=== PATIENT | male | born 1945 | race Caucasian/White ===

== ENCOUNTER → 2018-05-30 07:25 | Outpatient (CLI) | payer MEDICARE, OTHER, SELFPAY ==
[2018-05-30 08:41] LABS: Add Manual Diff / Slide Review NO; Basophils Percent Auto 0.8 % (0-2); Eosinophils Percent Auto 2.2 % (2-4); Hematocrit 39.1 % (41-53); Hemoglobin 13.6 g/dL (13.5-17.5); Lymphocytes Percent Auto 26.8 % (25-40); Mean Corpuscular HGB Conc 34.8 % (30-36); Mean Corpuscular Hemoglobin 34.1 PG (26-34); Monocytes Percent Auto 6.7 % (3-14); Neutrophils Absolute Auto 3300 /uL (3000-5900); Neutrophils Percent Auto 63.5 % (50-75); Platelet Count 194 X10^3/uL (150-400); Red Blood Cell Count 3.99 X10^6/uL (4.5-5.9); Red Cell Distribution Width 13.6 % (11.6-14.8); White Blood Cell Count 5.1 X10^3/uL (4.5-11.0)
[2018-05-30 09:14] LABS: Alanine Aminotransferase 21 IU/L (21-72); Albumin 4.4 g/dL (3.5-5.0); Albumin Globulin Ratio 1.3 (1.0-2.8); Alkaline Phosphatase 63 U/L (38-126); Aspartate Aminotransferase 22 IU/L (17-59); BUN Creatinine Ratio 13.6 (6-22); Bilirubin Total 0.6 mg/dL (0.2-1.3); Blood Urea Nitrogen 15 mg/dL (9-20); Calcium 9.5 mg/dL (8.4-10.2); Carbon Dioxide 29 mmol/L (22-32); Chloride 105 mmol/L (98-107); Estimated Glomerular Filt Rate > 60.0 mL/min (>60); Globulin 3.3 g/dL (1.7-4.1); Glucose 123 mg/dL (80-110); HEMOLYSIS < 15 (0-50); Magnesium 1.9 mg/dL (1.6-2.3); Potassium 4.6 mmol/L (3.4-5.1); Sodium 145 mmol/L (137-145); Total Protein 7.7 g/dL (6.3-8.2)
[2018-05-30 09:22] LABS: HEMOLYSIS < 15 (0-50); Iron 114 ug/dL (49-181)
[2018-05-30 09:33] LABS: Percent Iron Saturation 51 % (20-50); Total Iron Binding Capacity 225 ug/dL (261-462); Transferrin 175 mg/dL (206-381)
[2018-05-30 09:38] LABS: Vitamin D 25 Hydroxy (D3) 26.6 ng/mL (30.0-100.0)
[2018-05-30 09:59] LABS: Vitamin B12 376 pg/mL (239-931)
[2018-06-01 15:07] LABS: Parathyroid Hormone Int 79 pg/mL (14-64)
[2018-06-01 15:14] LABS: Folate, RBC 921 ng/mL RBC (> 280)
[2018-06-03 11:50] LABS: Vitamin B1 199 nmol/L (78-185)
== END ==
PROVIDERS: PCP Family Medicine; Visit Provider Nurse Practitioner Family
DX: Z98.84 Bariatric surgery status (principal); K91.2 Postsurgical malabsorption, not elsewhere classified; I10 Essential (primary) hypertension; E78.00 Pure hypercholesterolemia, unspecified; M10.9 Gout, unspecified; N18.2 Chronic kidney disease, stage 2 (mild)
CPT/HCPCS: 36415; 80053; 82306; 82330; 82607; 82728; 82747; 83540; 83550; 83735; 83970; 84425; 85025

== ENCOUNTER → 2018-08-07 11:30 | Outpatient (CLI) | payer MEDICARE, OTHER, SELFPAY ==
[2018-08-07 12:09] LABS: Add Manual Diff / Slide Review NO; Basophils Percent Auto 0.8 % (0-2); Eosinophils Percent Auto 2.3 % (2-4); Hemoglobin 14.5 g/dL (13.5-17.5); Lymphocytes Percent Auto 26.9 % (25-40); Mean Corpuscular HGB Conc 34.5 % (30-36); Mean Corpuscular Hemoglobin 33.9 PG (26-34); Mean Corpuscular Volume 98.4 fL (80-100); Monocytes Percent Auto 8.3 % (3-14); Neutrophils Absolute Auto 3700 /uL (3000-5900); Neutrophils Percent Auto 61.7 % (50-75); Platelet Count 185 X10^3/uL (150-400); Red Blood Cell Count 4.27 X10^6/uL (4.5-5.9); Red Cell Distribution Width 13.5 % (11.6-14.8); White Blood Cell Count 6.1 X10^3/uL (4.5-11.0)
[2018-08-07 12:27] LABS: Alanine Aminotransferase 21 IU/L (21-72); Albumin 4.7 g/dL (3.5-5.0); Albumin Globulin Ratio 1.3 (1.0-2.8); Alkaline Phosphatase 63 U/L (38-126); Aspartate Aminotransferase 28 IU/L (17-59); BUN Creatinine Ratio 16.4 (6-22); Bilirubin Total 0.5 mg/dL (0.2-1.3); Blood Urea Nitrogen 18 mg/dL (9-20); Calcium 9.8 mg/dL (8.4-10.2); Carbon Dioxide 27 mmol/L (22-32); Chloride 105 mmol/L (98-107); Cholesterol 230 mg/dL (140-199); Creatine Kinase 51 U/L (55-170); Estimated Glomerular Filt Rate > 60.0 mL/min (>60); Globulin 3.6 g/dL (1.7-4.1); Glucose 118 mg/dL (80-110); HDL Cholesterol 45 mg/dL (40-60); HEMOLYSIS 18 (0-50); LDL Cholesterol Calculated 141 mg/dL (<100); Potassium 4.7 mmol/L (3.4-5.1); Sodium 145 mmol/L (137-145); Total Protein 8.3 g/dL (6.3-8.2); Triglycerides 222 mg/dL (35-150)
[2018-08-07 12:46] LABS: Troponin I < 0.012 ng/mL (0.01-0.034)
== END ==
PROVIDERS: PCP Family Medicine; Visit Provider Nurse Practitioner Family
DX: R07.9 Chest pain, unspecified (principal)
CPT/HCPCS: 36415; 80053; 80061; 82550; 82553; 84484; 85025

== ENCOUNTER → 2018-09-09 08:07 | Outpatient (CLI) | payer MEDICARE, OTHER, SELFPAY ==
[2018-09-09 10:12] LABS: Cholesterol 211 mg/dL (140-199); HDL Cholesterol 46 mg/dL (40-60); LDL Cholesterol Calculated 134 mg/dL (<100); Triglycerides 153 mg/dL (35-150)
== END ==
PROVIDERS: Family Provider Family Medicine; PCP Family Medicine; Visit Provider Internal Medicine Cardiovascular Disease
DX: E78.2 Mixed hyperlipidemia (principal)
CPT/HCPCS: 36415; 80061

== ENCOUNTER → 2018-09-23 10:28 | Outpatient (CLI) | payer MEDICARE, OTHER, SELFPAY ==
--- NOTE | 2018-09-23 10:30 | DI.RAD.S_ITS ---
PROCEDURE: XR WRIST RT MIN 3V INDICATIONS: Wrist pain TECHNIQUE: 4 views of the wrist were acquired. COMPARISON: None. FINDINGS: Bones: No fractures or dislocations. First CMC and triscaphe joint degeneration. There is also DRUJ degeneration. Chronic appearing ossicle projects adjacent to the ulnar styloid. Lucencies project in the second and third metacarpal heads. There also periarticular calcification seen at the second and third MCP joints. No suspicious bony lesions. Soft tissues: No suspicious soft tissue calcifications. IMPRESSION: Diffuse right wrist joint degeneration, including the distal radioulnar joint. Chronic-appearing corticated ossicle adjacent ulnar styloid suggestive of chronic fracture fragment versus loose body. Severe first CMC joint degeneration. Second and third MCP joint degeneration with periarticular calcific foci. Possible early erosions involving the second and third metacarpal heads. Please correlate clinically and with laboratory data to exclude gout. Dictated by: Ramsey Cabezas M.D. on 09/23/2018 at 13:21 Approved by: Ramsey Cabezas M.D. on 09/23/2018 at 13:24
== END ==
PROVIDERS: Family Provider Family Medicine; PCP Student in an Organized Health Care Education/Training Program; Visit Provider Student in an Organized Health Care Education/Training Program
DX: M25.531 Pain in right wrist (principal); M18.11 Unilateral primary osteoarthritis of first carpometacarpal joint, right hand; M19.041 Primary osteoarthritis, right hand; M19.031 Primary osteoarthritis, right wrist
CPT/HCPCS: 73110

== ENCOUNTER → 2018-10-29 15:34 | Outpatient (CLI) | payer MEDICARE, OTHER, SELFPAY ==
--- NOTE | 2018-10-29 15:35 | DI.RAD.S_ITS ---
PROCEDURE: XR CHEST 2V INDICATIONS: Chest pain TECHNIQUE: 2 views of the chest were acquired. COMPARISON: [facility], , CHEST 1 VIEW, 10/30/2017, 14:44. FINDINGS: Surgical changes and devices: None. Lungs and pleura: No pleural effusions or pneumothorax. Lungs are clear. Mediastinum: Mediastinal contours are normal. Heart size is normal. Bones and chest wall: No suspicious bony abnormalities. Soft tissues appear unremarkable. IMPRESSION: No acute pulmonary process. Dictated by: Trish Augustine M.D. on 10/29/2018 at 17:27 Approved by: Trish Augustine M.D. on 10/29/2018 at 17:27
== END ==
PROVIDERS: PCP Student in an Organized Health Care Education/Training Program; Visit Provider Student in an Organized Health Care Education/Training Program
DX: R07.89 Other chest pain (principal)
CPT/HCPCS: 71046

== ENCOUNTER → 2019-02-24 07:37 | Outpatient (CLI) | payer MEDICARE, OTHER, SELFPAY ==
[2019-02-24 09:00] LABS: BUN Creatinine Ratio 12.5 (6-22); Blood Urea Nitrogen 15 mg/dL (9-20); Calcium 9.3 mg/dL (8.4-10.2); Carbon Dioxide 25 mmol/L (22-32); Chloride 105 mmol/L (98-107); Cholesterol 133 mg/dL (140-199); Glucose 123 mg/dL (80-110); HDL Cholesterol 40 mg/dL (40-60); HEMOLYSIS < 15 (0-50); LDL Cholesterol Calculated 36 mg/dL (<100); Potassium 4.2 mmol/L (3.4-5.1); Sodium 141 mmol/L (137-145); Triglycerides 283 mg/dL (35-150); Uric Acid 8.2 mg/dL (3.5-8.5)
[2019-02-24 09:27] LABS: Vitamin D 25 Hydroxy (D3) 29.3 ng/mL (30.0-100.0)
== END ==
PROVIDERS: Family Provider Student in an Organized Health Care Education/Training Program; PCP Student in an Organized Health Care Education/Training Program; Visit Provider Internal Medicine Cardiovascular Disease
DX: E78.2 Mixed hyperlipidemia (principal); E55.9 Vitamin D deficiency, unspecified; M1A.39X1 Chronic gout due to renal impairment, multiple sites, with tophus (tophi)
CPT/HCPCS: 36415; 80048; 80061; 82306; 84550

== ENCOUNTER → 2019-05-19 07:14 | Outpatient (CLI) | payer MEDICARE, OTHER, SELFPAY ==
[2019-05-19 08:31] LABS: Add Manual Diff / Slide Review NO; Basophils Absolute Auto 0 /uL (0-100); Basophils Percent Auto 0.9 % (0-2); Eosinophils Absolute Auto 200 /uL (0-450); Eosinophils Percent Auto 3.1 % (2-4); Hemoglobin 14.3 g/dL (13.5-17.5); Lymphocytes Absolute Auto 1300 /uL (1100-4500); Lymphocytes Percent Auto 23.7 % (25-40); Mean Corpuscular HGB Conc 34.2 % (30-36); Mean Corpuscular Hemoglobin 34.6 PG (26-34); Mean Corpuscular Volume 101.2 fL (80-100); Monocytes Absolute Auto 400 /uL (0-900); Monocytes Percent Auto 6.9 % (3-14); Neutrophils Absolute Auto 3500 /uL (1500-7000); Neutrophils Percent Auto 65.4 % (50-75); Platelet Count 185 X10^3/uL (150-400); Red Blood Cell Count 4.15 X10^6/uL (4.5-5.9); Red Cell Distribution Width 13.2 % (11.6-14.8); White Blood Cell Count 5.3 X10^3/uL (4.5-11.0)
[2019-05-19 08:49] LABS: Hemoglobin A1C% w Est Avg Glu 5.7 % (4.0-6.0)
[2019-05-19 08:53] LABS: Alanine Aminotransferase 19 IU/L (21-72); Albumin 4.4 g/dL (3.5-5.0); Albumin Globulin Ratio 1.3 (1.0-2.8); Alkaline Phosphatase 53 U/L (38-126); Aspartate Aminotransferase 26 IU/L (17-59); Bilirubin Total 0.9 mg/dL (0.2-1.3); Blood Urea Nitrogen 18 mg/dL (9-20); Calcium 9.5 mg/dL (8.4-10.2); Carbon Dioxide 26 mmol/L (22-32); Chloride 107 mmol/L (98-107); Globulin 3.3 g/dL (1.7-4.1); Glucose 144 mg/dL (80-110); HEMOLYSIS < 15 (0-50); Magnesium 1.6 mg/dL (1.6-2.3); Potassium 4.3 mmol/L (3.4-5.1); Sodium 144 mmol/L (137-145); Total Protein 7.7 g/dL (6.3-8.2)
[2019-05-19 09:07] LABS: HEMOLYSIS < 15 (0-50); Iron 146 ug/dL (49-181)
[2019-05-19 09:17] LABS: Percent Iron Saturation 60 % (20-50); Total Iron Binding Capacity 244 ug/dL (261-462); Transferrin 200 mg/dL (206-381)
[2019-05-19 09:39] LABS: Vitamin B12 328 pg/mL (239-931)
[2019-05-20 15:38] LABS: Folate, RBC 561 ng/mL RBC (> 280)
[2019-05-23 00:58] LABS: Vitamin B1 160 nmol/L (78-185)
== END ==
PROVIDERS: Family Provider Student in an Organized Health Care Education/Training Program; PCP Student in an Organized Health Care Education/Training Program; Visit Provider Nurse Practitioner Family
DX: Z98.84 Bariatric surgery status (principal); K91.2 Postsurgical malabsorption, not elsewhere classified; E66.9 Obesity, unspecified; E66.3 Overweight; N18.2 Chronic kidney disease, stage 2 (mild)
CPT/HCPCS: 36415; 80053; 82330; 82607; 82728; 82747; 83036; 83540; 83550; 83735; 84425; 85025

== ENCOUNTER 2019-09-22 11:05 | Emergency (ER) | payer MEDICARE, OTHER, SELFPAY ==
[2019-09-22 11:23] VITALS: BP 164/84; PULSE 64; RESP 16; TEMP 36.6; O2SAT 100; BMI 33.2
[2019-09-22 12:10] VITALS: BP 189/114; BP 192/90; BP 194/80
--- NOTE | 2019-09-22 12:16 | DI.RAD.S_ITS ---
PROCEDURE: XR CHEST 1V INDICATIONS: chest pain TECHNIQUE: One view of the chest was acquired. COMPARISON: [facility], CR, XR CHEST 2V, 10/29/2018, 15:44. FINDINGS: Surgical changes and devices: None. Lungs and pleura: Lungs are clear. No pleural effusions or pneumothorax. Mediastinum: Mediastinal contours appear normal. Heart size is normal. Bones and chest wall: No suspicious bony lesions. Overlying soft tissues appear unremarkable. IMPRESSION: No acute cardiopulmonary disease. Dictated by: Jas Guillen M.D. on 09/22/2019 at 13:01 Approved by: Jas Guillen M.D. on 09/22/2019 at 13:01
[2019-09-22 12:23] LABS: Add Manual Diff / Slide Review NO; Basophils Absolute Auto 100 /uL (0-100); Eosinophils Absolute Auto 100 /uL (0-450); Hemoglobin 13.6 g/dL (13.5-17.5); Lymphocytes Absolute Auto 2100 /uL (1100-4500); Mean Corpuscular HGB Conc 34.9 % (30-36); Mean Corpuscular Hemoglobin 34.5 PG (26-34); Mean Corpuscular Volume 99.1 fL (80-100); Monocytes Absolute Auto 600 /uL (0-900); Monocytes Percent Auto 8.7 % (3-14); Neutrophils Absolute Auto 4100 /uL (1500-7000); Neutrophils Percent Auto 58.3 % (50-75); Platelet Count 180 X10^3/uL (150-400); Red Blood Cell Count 3.94 X10^6/uL (4.5-5.9); Red Cell Distribution Width 13.2 % (11.6-14.8)
[2019-09-22 12:29] LABS: Prothrombin Time 11.2 SECONDS (10.1-12.7)
[2019-09-22 12:30] VITALS: BP 194/80; PULSE 59; RESP 22; O2SAT 99
[2019-09-22 12:31] LABS: PTT Partial Thromboplastin Tim 34 SECONDS (26.4-36.2)
[2019-09-22 12:34] LABS: Alanine Aminotransferase 21 IU/L (<50); Albumin 4.3 g/dL (3.5-5.0); Albumin Globulin Ratio 1.5 (1.0-2.8); Alkaline Phosphatase 58 U/L (38-126); Aspartate Aminotransferase 30 IU/L (17-59); BUN Creatinine Ratio 12.3 (6-22); Bilirubin Total 0.6 mg/dL (0.2-1.3); Blood Urea Nitrogen 16 mg/dL (9-20); Calcium 9.3 mg/dL (8.4-10.2); Carbon Dioxide 26 mmol/L (22-32); Chloride 107 mmol/L (98-107); Creatine Kinase 77 U/L (55-170); Estimated Glomerular Filt Rate 53.8 mL/min (>60); Globulin 2.8 g/dL (1.7-4.1); Glucose 112 mg/dL (80-110); HEMOLYSIS < 15 (0-50); Potassium 3.9 mmol/L (3.4-5.1); Sodium 142 mmol/L (137-145); Total Protein 7.1 g/dL (6.3-8.2)
[2019-09-22 12:48] LABS: Troponin I < 0.012 ng/mL (0.01-0.034)
--- NOTE | 2019-09-22 13:01 | ED_ITS ---
HPI - Syncope General Chief Complaint: Syncope Stated Complaint: abnormal EKG PT has a reading in hand Time Seen by Provider: 09/22/19 11:36 Source: patient Mode of arrival: Ambulatory Limitations: language barrier History of Present Illness HPI narrative: Patient comes emergency department after having a syncopal e pisode approximately 36 hours ago. He states that he had gotten up in the middle of the night to go to the bathroom and he suddenly felt some tingling in his fingers, then woke up on the floor. Patient states his was there and stated he had passed out. Patient states he was only unconscious for a few seconds and felt fine afterward. He states he did not feel any ill feeling prior to the syncopal episode, other than the tingling in his fingers. No chest pain or shortness breath. No nausea vomiting. No headache. No focal neurologic deficits. Patient states that he is otherwise fairly healthy. He does not have any history of syncopal episode prior. Patient states that yesterday, he felt well and did not have any further syncope or near syncope. Last night he got up to go to the bathroom and did not have any trouble with getting up and walking.. Related Data Home Medications Medication Instructions Recorded Confirmed vitamin B complex [B 1 tab PO QDAY #0 08/22/16 09/23/19 Complex-Vitamin B12] [CALCIUM] 150 mg PO SEE INSTRUCTIONS #0 11/01/17 09/23/19 [IRON] 65 mg PO SEE INSTRUCTIONS #0 11/01/17 09/23/19 magnesium oxide 400 mg PO QDAY #0 11/01/17 09/23/19 omega-3 fatty acids 1,000 mg 1,000 mg PO BID cap 08/07/18 09/23/19 capsule omeprazole 40 mg capsule,delayed 20 mg PO Q DAY cap 08/07/18 09/23/19 release atorvastatin 20 mg tablet 20 mg PO DAILY 09/23/18 09/23/19 Previous Rx's Medication Instructions Recorded colchicine 0.6 mg tablet 0.6 mg PO TIDP PRN #180 tab 09/23/18 probenecid 500 mg tablet 1,000 mg PO BID #360 tab 09/23/19 Allergies Allergy/AdvReac Type Severity Reaction Status Date / Time codeine Allergy Mild RASH Verified 09/23/19 14:11 probenecid AdvReac Intermediate Back Pain Verified 09/23/19 14:11 Review of Systems Constitutional Constitutional: Denies chills, Denies fatigue, Denies fever(s), Denies frequent falls, Denies lethargy and Denies weakness Eyes Eyes: Denies change in vision, Denies eye discharge, Denies irritation and Denies loss of vision ENT Ears, Nose, Mouth, and Throat: Denies change in voice, Denies dizziness, Denies neck pain, Denies sore throat and Denies throat swelling Cardiovascular Cardiovascular: Denies chest pain, Reports syncope, Denies irregular heart rhythm, Denies lightheadedness, Denies palpitations, Denies dyspnea, Denies dyspnea on exertion and Denies orthopnea Respiratory Respiratory: Denies cough, Denies dyspnea, Denies dyspnea on exertion and Denies wheezing Gastrointestinal Gastrointestinal: Denies abdominal pain, Denies change in bowel habits, Denies diarrhea, Denies nausea and Denies vomiting Genitourinary Genitourinary: Denies hematuria, Denies flank pain, Denies urinary incontinence and Denies urinary urgency Musculoskeletal Musculoskeletal: Denies back pain, Denies muscle weakness, Denies neck pain, Denies numbness and Denies tingling Integumentary/Breasts Skin/Breast: Denies pruritus, Denies erythema, Denies rash and Denies wounds Neurologic Neurologic: Denies behavioral changes, Denies confusion, Denies dizziness, Reports syncope, Denies frequent falls, Denies loss of vision, Denies numbness, Denies tingling and Denies weakness Psychiatric Psychiatric: Denies anxiety, Denies behavioral changes, Denies confusion, Denies depression, Denies homicidal ideation and Denies suicidal ideation Endocrine Endocrine: Denies fatigue, Denies flushing and Denies palpitations Hematologic/Lymphatic Hematologic/Lymphatic: Denies easy bruising Allergic/Immunologic Allergic/Immunologic: Denies urticaria, Denies throat swelling and Denies wheezing Patient History Medical History CAD (coronary artery disease) (Chronic) COPD (chronic obstructive pulmonary disease) (Chronic) Diabetes mellitus (Chronic) GERD (gastroesophageal reflux disease) (Chronic) Hyperlipidemia (Chronic) WI (myocardial infarction) (Resolved) Obesity (Chronic) Renal insufficiency (Chronic) Sleep apnea (Chronic) Surgical History History of cataract removal with insertion of prosthetic lens (Resolved 06/16/08) History of cataract removal with insertion of prosthetic lens (Resolved 07/14/08) History of gastric bypass (Resolved 07/06/14) Status post appendectomy (Resolved 02/10/15) Status post blepharoplasty of both eyes (Resolved 02/19/09) Status post endoscopy (Resolved 04/16/14) Status post laparoscopic cholecystectomy (Resolved 02/10/15) Status post left knee replacement (Resolved 04/10/05) Status post right knee replacement (Resolved 07/22/05) Family History Father No problems noted. Mother No problems noted. Sister Chronic back pain Sister No problems noted. Son Hyperlipidemia Alcoholic Son Hyperlipidemia Chronic headaches Daughter No problems noted. Social History Smoking Status: Former smoker alcohol intake frequency: holidays/special occasions only Alcohol type: beer Substance Use Type: does not use Exam Initial Vital Signs Initial Vital Signs: Vital Signs Temperature 97.9 F 09/22/19 11:23 Pulse Rate 64 09/22/19 11:23 Respiratory Rate 16 09/22/19 11:23 Blood Pressure 164/84 H 09/22/19 11:23 Pulse Oximetry 100 09/22/19 11:23 Const General: cooperative and well developed Nutritional Appearance: well nourished Orientation: alert, awake, oriented x3 and not confused [facility] Head: normocephalic and atraumatic Ears: external ears normal Nose: external nose normal and No nasal discharge Face and sinus: face symmetric and No dry mucous membranes Mouth: oral mucosae normal and moist mucous membranes Teeth and gingiva: dentition normal Eyes General: appearance normal, both eyes and all related structures Eyelids: eyelids normal Conjunctivae: conjunctivae normal Sclera: sclerae normal Pupils: PERRL EOM: EOM intact bilaterally Neck Neck: normal visual inspection, trachea midline, No lymphadenopathy, No midline deformity and No JVD Lymphatic: No lymphedema Chest Chest: normal inspection of the chest Resp Effort & Inspection: normal respiratory effort, able to speak in complete sentences, no respiratory distress and no use of accessory muscles Auscultation: clear to auscultation bilaterally, no rales, no rhonchi and no wheezes Cardio Rate: regular rate Rhythm: regular rhythm Heart Sounds: no click, no gallops, no murmurs and no rubs Pulses: normal peripheral pulses GI Inspection: non-distended Palpation: soft, no hepatosplenomegaly, No guarding, No pulsatile mass and No tender Auscultation: normal bowel sounds Back/Spine/Pelvis Back: No CVA tenderness Cervical Spine: cervical ROM normal and No pain with cervical ROM Thoracic/Lumbar Spine: thoracic and lumbar spine normal to inspection Skin General: no rashes or lesions noted, No jaundice and No petechiae Neuro General: alert, oriented x3, gait normal and no focal motor deficits Speech: speech normal Extrem General: full ROM, no clubbing, cyanosis or edema, no pedal edema and no calf tenderness Psych Appearance: well kempt Mental Status: mental status grossly normal Attitude: cooperative Thought Content: normal and suicidality Judgment: judgment good Course Course Course Narrative: Patient was worked up with labs and EKG, which were unremarkable. The patient was found to be bradycardic in the 50s, but the patient states that this is his normal heart rate. The patient was feeling very well, and I suspected postural syncope. We have discussed the importance of drinking plenty of fluids, and of follow-up, should he have further episodes of syncope. However, at this time, I do not find evidence of an emergent condition, and the patient is stable for discharge home. Orders Ordered: ED Orders 09/22/19 12:10 Complete Blood Count AUTO DIFF Stat Comprehensive Metabolic Panel Stat Partial Thromboplastin Time Stat Prothrombin Time INR Stat Troponin & CK Cardiac Panel Stat 09/22/19 12:16 XR chest 1V Stat EKG-12 Lead Stat Vital Signs Vital signs: Vital Signs - 8 hr 09/22/19 11:23 09/22/19 12:30 Temperature 97.9 F Pulse Rate 64 59 L Respiratory Rate 16 22 Blood Pressure 164/84 H Blood Pressure [Right Arm] 194/80 H Pulse Oximetry 100 99 MDM - Syncope Medical Records Attestation: I reviewed the patient's medical records. Lab Data Attestation: I reviewed the patient's lab results. Result diagrams: 09/22/19 12:10 09/22/19 12:10 Labs: Lab Results 11/04/19 11/04/19 11/04/19 Range/Units 12:10 12:10 12:10 WBC 7.0 (4.5-11.0) X10^3/uL RBC 3.94 L (4.5-5.9) X10^6/uL Hgb 13.6 (13.5-17.5) g/dL Hct 39.0 L (41-53) % MCV 99.1 (80-100) fL MCH 34.5 H (26-34) PG MCHC 34.9 (30-36) % RDW 13.2 (11.6-14.8) % Plt Count 180 (150-400) X10^3/uL Neut % (Auto) 58.3 (50-75) % Lymph % (Auto) 30.0 (25-40) % Larimer % (Auto) 8.7 (3-14) % Eos % (Auto) 2.0 (2-4) % Baso % (Auto) 1.0 (0-2) % Neut # (Auto) 4100 (1676-6093) /uL Lymph # (Auto) 2100 (4802-3535) /uL Larimer # (Auto) 600 (0-900) /uL Eos # (Auto) 100 (0-450) /uL Baso # (Auto) 100 (0-100) /uL PT 11.2 (10.1-12.7) SECONDS INR 1.0 (0.9-1.3) APTT 34 (26.4-36.2) SECONDS Sodium 142 (137-145) mmol/L Potassium 3.9 (3.4-5.1) mmol/L Chloride 107 (98-107) mmol/L Carbon Dioxide 26 (22-32) mmol/L BUN 16 (9-20) mg/dL Creatinine 1.30 H (0.66-1.25) mg/dL Estimated GFR 53.8 L (>60) mL/min BUN/Creatinine Ratio 12.3 (6-22) Glucose 112 H (80-110) mg/dL Uric Acid (3.5-8.5) mg/dL Calcium 9.3 (8.4-10.2) mg/dL Total Bilirubin 0.6 (0.2-1.3) mg/dL AST 30 (17-59) IU/L ALT 21 (<50) IU/L Alkaline Phosphatase 58 (38-126) U/L Total Creatine Kinase 77 (55-170) U/L CK-MB (CK-2) TNP CK-MB (CK-2) Rel Index TNP Troponin I < 0.012 (0.01-0.034) ng/mL Total Protein 7.1 (6.3-8.2) g/dL Albumin 4.3 (3.5-5.0) g/dL Globulin 2.8 (1.7-4.1) g/dL Albumin/Globulin Ratio 1.5 (1.0-2.8) 09/22/19 Range/Units 12:10 WBC (4.5-11.0) X10^3/uL RBC (4.5-5.9) X10^6/uL Hgb (13.5-17.5) g/dL Hct (41-53) % MCV (80-100) fL MCH (26-34) PG MCHC (30-36) % RDW (11.6-14.8) % Plt Count (150-400) X10^3/uL Neut % (Auto) (50-75) % Lymph % (Auto) (25-40) % Larimer % (Auto) (3-14) % Eos % (Auto) (2-4) % Baso % (Auto) (0-2) % Neut # (Auto) (8919-5971) /uL Lymph # (Auto) (0701-5798) /uL Larimer # (Auto) (0-900) /uL Eos # (Auto) (0-450) /uL Baso # (Auto) (0-100) /uL PT (10.1-12.7) SECONDS INR (0.9-1.3) APTT (26.4-36.2) SECONDS Sodium (137-145) mmol/L Potassium (3.4-5.1) mmol/L Chloride (98-107) mmol/L Carbon Dioxide (22-32) mmol/L BUN (9-20) mg/dL Creatinine (0.66-1.25) mg/dL Estimated GFR (>60) mL/min BUN/Creatinine Ratio (6-22) Glucose (80-110) mg/dL Uric Acid 10.1 H (3.5-8.5) mg/dL Calcium (8.4-10.2) mg/dL Total Bilirubin (0.2-1.3) mg/dL AST (17-59) IU/L ALT (<50) IU/L Alkaline Phosphatase (38-126) U/L Total Creatine Kinase (55-170) U/L CK-MB (CK-2) CK-MB (CK-2) Rel Index Troponin I (0.01-0.034) ng/mL Total Protein (6.3-8.2) g/dL Albumin (3.5-5.0) g/dL Globulin (1.7-4.1) g/dL Albumin/Globulin Ratio (1.0-2.8) Point of Care Testing Glucose POC 110 Imaging Data Chest x-ray: Radiologist's impression: PROCEDURE: XR CHEST 1V INDICATIONS: chest pain TECHNIQUE: One view of the chest was acquired. COMPARISON: [facility], , XR CHEST 2V, 10/29/2018, 15:44. FINDINGS: Surgical changes and devices: None. Lungs and pleura: Lungs are clear. No pleural effusions or pneumothorax. Mediastinum: Mediastinal contours appear normal. Heart size is normal. Bones and chest wall: No suspicious bony lesions. Overlying soft tissues appear unremarkable. IMPRESSION: No acute cardiopulmonary disease. Dictated by: Jas Guillen M.D. on 09/22/2019 at 13:01 Approved by: Jas Guillen M.D. on 09/22/2019 at 13:01 ECG Data Attestation: I personally reviewed and interpreted this ECG as follows: (See below) Interpretation: Twelve lead EKG performed September 22, 2019 at 11:54 a.m., as follows: Regular ventricular rhythm with a rate of 56 beats per minute MS interval 187 milliseconds QRS duration 116 milliseconds QTC interval [address] T wave changes Occasional PVCs Interpretation: Sinus bradycardia with PVCs; possible lateral myocardial infarction, probably old; no signs of acute ischemia; abnormal rhythm EKG as interpreted by 80 mg. Discharge Plan Departure Patient Disposition: Home Clinical Impression: Postural syncope Discharge Date/Time: 09/22/19 12:45 Instructions: DI for Syncope in Adults (Fainting) Activity Restrictions/Additional Instructions: Your labs an EKG look good. Most likely, your fainting episode was caused by positional change. Be sure you drink plenty of fluids. If you have repeated episodes of fainting, you will need to follow up with your primary care physician to discuss wearing a heart monitor at home to see what is going on with your heart during these times. Prescriptions: No Action omeprazole 40 mg capsule,delayed release(DR/EC) 20 mg PO Q DAY RF: 0 omega-3 fatty acids [Fish Oil Concentrate] 1,000 mg capsule 1,000 mg PO BID RF: 0 atorvastatin [Lipitor] 20 mg tablet 20 mg PO DAILY RF: 0 colchicine 0.6 mg tablet 0.6 mg PO TIDP PRN (Reason: gout) Qty: 180 RF: 3 vitamin B complex [B Complex-Vitamin B12] 1 EACH tablet 1 tab PO QDAY Qty: 0 RF: 0 [CALCIUM] 150 mg PO SEE INSTRUCTIONS Qty: 0 RF: 0 magnesium oxide 400 MG capsule 400 mg PO QDAY Qty: 0 RF: 0 [IRON] 65 mg PO SEE INSTRUCTIONS Qty: 0 RF: 0 probenecid 500 mg tablet 1,000 mg PO BID Qty: 360 RF: 0 Referrals: Sebas Griffith MD [Primary Care Provider] -
[2019-09-23 15:07] LABS: Uric Acid 10.1 mg/dL (3.5-8.5)
== END 2019-09-22 12:45 | disposition home or self-care (01) ==
PROVIDERS: Emergency Provider Emergency Medicine; Family Provider Student in an Organized Health Care Education/Training Program; PCP Student in an Organized Health Care Education/Training Program
DX: R55 Syncope and collapse (principal); R07.9 Chest pain, unspecified; R00.1 Bradycardia, unspecified; R79.89 Other specified abnormal findings of blood chemistry
CPT/HCPCS: 36415; 71045; 80053; 82550; 84484; 84550; 85025; 85610; 85730; 93005; 93010; 99283; 99285

== ENCOUNTER → 2020-02-27 07:12 | Outpatient (CLI) | payer MEDICARE, OTHER, SELFPAY ==
[2020-02-27 08:34] LABS: Alanine Aminotransferase 15 IU/L (<50); Albumin 4.5 g/dL (3.5-5.0); Albumin Globulin Ratio 1.3 (1.0-2.8); Alkaline Phosphatase 79 U/L (38-126); Aspartate Aminotransferase 26 IU/L (17-59); Bilirubin Total 0.5 mg/dL (0.2-1.3); Blood Urea Nitrogen 17 mg/dL (9-20); Calcium 9.6 mg/dL (8.4-10.2); Carbon Dioxide 27 mmol/L (22-32); Chloride 108 mmol/L (98-107); Cholesterol 157 mg/dL (140-199); Estimated Glomerular Filt Rate 53.2 mL/min (>60); Globulin 3.5 g/dL (1.7-4.1); Glucose 141 mg/dL (80-110); HDL Cholesterol 33 mg/dL (40-60); HEMOLYSIS < 15 (0-50); LDL Cholesterol Calculated 86 mg/dL (<100); Potassium 4.6 mmol/L (3.4-5.1); Sodium 143 mmol/L (137-145); Triglycerides 190 mg/dL (35-150)
== END ==
PROVIDERS: Family Provider Student in an Organized Health Care Education/Training Program; PCP Student in an Organized Health Care Education/Training Program; Referring Provider Internal Medicine Cardiovascular Disease; Visit Provider Internal Medicine Cardiovascular Disease
DX: I25.10 Atherosclerotic heart disease of native coronary artery without angina pectoris (principal)
CPT/HCPCS: 36415; 80053; 80061

== ENCOUNTER → 2020-07-11 10:03 | Outpatient (CLI) | payer MEDICARE, OTHER, SELFPAY ==
[2020-07-12 11:07] LABS: COVID19 Sendout Not Detected (Not Detect)
== END ==
PROVIDERS: Family Provider Student in an Organized Health Care Education/Training Program; PCP Student in an Organized Health Care Education/Training Program; Visit Provider Nurse Practitioner
DX: Z11.59 Encounter for screening for other viral diseases (principal)
CPT/HCPCS: 87635

== ENCOUNTER 2020-07-14 09:20 | Day surgery (SDC) | payer MEDICARE, OTHER, SELFPAY ==
--- NOTE | 2020-07-14 | PATH_ITS ---
[facility] Accession Number: [id number] . 01 Material submitted: . gastrointestinal site - EPIGASTRIC BIOPSY . 01 Clinical history: . EGD . 02 Diagnosis: Epigastric Biopsy: Oxyntic-type mucosa with no diagnostic abnormality. Negative for Helicobacter by immunohistochemistry. Negative for intestinal metaplasia. Negative for dysplasia and malignancy. MRV 07/16/2020 1334 Local . 02 Electronically signed: . Bozena Brooks MD, Pathologist NPI- [id number] . 01 Gross description: . EPIGASTRIC BIOPSY: Received in formalin are 2 fragment(s) of hillman, soft tissue measuring 0.1 x 0.1 x 0.1 cm to 0.2 x 0.1 x 0.1 cm submitted entirely in 1 cassette(s) /LOR 07/15/2020 0119 Local . 02 Microscopic: . An immunohistochemical stain was performed to evaluate for Helicobacter organisms and is negative. The control stain showed appropriate reactivity. . * This test was developed and its performance characteristics determined by [facility]. It has not been cleared or approved by the U.S. Food and Drug Administration. The FDA has determined that such clearance or approval is not necessary. This test is used for clinical purposes. It should not be regarded as investigational or for research. . 02 Pathologist provided ICD-10: R10.9 . 02 CPT . 284619, 093506, D63912 Performed at: 01 [facility] [address] [facility], [place], [place] [id number] MD Sae Lai MD Phone: [phone] Performed at: 02 [facility] [place] [address] [place], [place] [id number] MD Bozena Brooks MD Phone: [phone]
[2020-07-14] MEDS: SODIUM CHLORIDE 0.9% 1,000 ML 42 ML IV (10:02)
[2020-07-14 10:04] VITALS: BP 173/75; PULSE 53; RESP 16; TEMP 36.3; O2SAT 100; BMI 33.0
[2020-07-14] MEDS: fentaNYL 250 MCG/5 ML INJ IV (11:03)
[2020-07-14] MEDS: MIDAZOLAM 5 MG/5 ML VIAL IV (11:03)
--- NOTE | 2020-07-14 11:14 | PM.OP.ENDO ---
Operative Date/Time/Diagnoses Date of procedure: 07/14/20 Time of procedure: 11:14 Pre-op diagnosis: See indication and findings Procedure & Clinicians Study performed: EGD with biopsy Same procedure as scheduled: Yes Indications: Epigastric pain status post gastric bypass rule out anastomotic ulcer Surgeon: Lobito Boss Procedure Notes Procedure in detail: After informed consent was obtained the patient was placed in left lateral decubitus position. The video upper scope was placed into the oropharynx and with the patient is hopeful to the esophagus. The esophagus, stomach, duodenum were carefully examined. On withdrawal retroflexed view the GE junction was performed. The scope was removed. The patient tolerated procedure well. Blood loss none Complications none Sedation Total sedation time 11 minutes Versed 4 mg fentanyl 100 mg IV titration Findings 1. Normal esophagus with normal squamocolumnar junction at about 40 cm 2. Small to moderate gastric pouch with the appearance of intestinal metaplasia near the anastomosis but no evidence for ulceration or visible sutures or gabriel. Biopsies were taken to rule out Helicobacter. 3. Evaluation of the Yamileth limb 200 cm past the anastomosis did not allow visualization of the distal anastomosis. This segment was completely normal. Mr. Odette rodriguez old male is stay on his omeprazole is again skin symptoms soon as he goes off. We will follow up on biopsies with him by telephone and otherwise she should return on a as needed basis.
[2020-07-14 11:17] VITALS: BP 138/73; PULSE 51; RESP 11; TEMP 36.5; O2SAT 95
[2020-07-14 11:27] VITALS: BP 132/83; PULSE 56; RESP 18; O2SAT 95
[2020-07-14 11:32] VITALS: BP 140/89; PULSE 53; RESP 16; O2SAT 96
== END 2020-07-14 11:57 | disposition home or self-care (01) ==
PROVIDERS: Family Provider Student in an Organized Health Care Education/Training Program; PCP Student in an Organized Health Care Education/Training Program; Referring Provider Internal Medicine Gastroenterology; Visit Provider Internal Medicine Gastroenterology
PROC: 0DJ08ZZ Inspection of Upper Intestinal Tract, Via Natural or Artificial Opening Endoscopic (ICD-10-PCS; CPT 43235; principal; 2020-07-14 11:00)
DX: R10.13 Epigastric pain (principal); Z98.84 Bariatric surgery status; E66.9 Obesity, unspecified; G47.33 Obstructive sleep apnea (adult) (pediatric); I10 Essential (primary) hypertension; E78.00 Pure hypercholesterolemia, unspecified; J45.909 Unspecified asthma, uncomplicated
CPT/HCPCS: 43239; J2250; J3010

== ENCOUNTER → 2020-07-17 10:33 | Outpatient (CLI) | payer MEDICARE, OTHER, SELFPAY ==
--- NOTE | 2020-07-17 10:35 | DI.RAD.S_ITS ---
PROCEDURE: XR ELBOW RT MIN 3V INDICATIONS: right elbow pain, r/o bony abnormality TECHNIQUE: 3 views of the elbow were acquired. COMPARISON: None. FINDINGS: Bones: No fractures or dislocations. No suspicious bony lesions. There is a large olecranon enthesophyte. Soft tissues: There is likely a small elbow joint effusion. No suspicious soft tissue calcifications. IMPRESSION: Degenerative change. Small joint effusion. No acute fracture or dislocation. If there is continued pain, followup exam or additional imaging such as MRI or CT could be performed for further assessment. Dictated by: Haydee Merritt M.D. on 07/17/2020 at 10:16 Approved by: Haydee Merritt M.D. on 07/17/2020 at 10:17
--- NOTE | 2020-07-17 10:35 | DI.RAD.S_ITS ---
PROCEDURE: XR WRIST RT MIN 3V INDICATIONS: right wrist pain/swelling, r/o bony abnormality TECHNIQUE: 4 views of the wrist were acquired. COMPARISON: [facility], , XR WRIST RT MIN 3V, 09/23/2018, 11:26. FINDINGS: Bones: Severe degenerative changes at the 1st CMC joint, this triscaphe joint, and the ulnar carpal joint are redemonstrated and appear similar in extent to the study from September 23, 2018. No definite fracture or dislocation visualized. Scaphoid view: The scaphoid is intact. Soft tissues: No suspicious soft tissue calcifications. IMPRESSION: Severe osteoarthritis similar to 2018. No acute radiographic findings. If there is continued pain, followup exam or additional imaging such as MRI or CT could be performed for further assessment. Dictated by: Haydee Merritt M.D. on 07/17/2020 at 10:14 Approved by: Haydee Merritt M.D. on 07/17/2020 at 10:15
== END ==
PROVIDERS: Family Provider Student in an Organized Health Care Education/Training Program; PCP Student in an Organized Health Care Education/Training Program; Referring Provider Physician Assistant; Visit Provider Physician Assistant
DX: M25.521 Pain in right elbow (principal); M25.531 Pain in right wrist; M18.11 Unilateral primary osteoarthritis of first carpometacarpal joint, right hand; M19.031 Primary osteoarthritis, right wrist; M25.421 Effusion, right elbow
CPT/HCPCS: 73080; 73110

== ENCOUNTER → 2020-11-15 13:20 | Outpatient (CLI) | payer MEDICARE, OTHER, SELFPAY ==
--- NOTE | 2020-11-15 13:22 | DI.RAD.S_ITS ---
PROCEDURE: XR HAND RT MIN 3V INDICATIONS: right hand pain/swelling after fall TECHNIQUE: 3 views of the hand(s) acquired. COMPARISON: [facility], CR, XR WRIST RT MIN 3V, 09/23/2018, 11:26. FINDINGS: Bones: No fractures or dislocations but there is moderately severe degenerative osteoarthritic change at the interphalangeal joints, at the distal ulnar-styloid process, and to a lesser degree at the radiocarpal joint and scattered within the intercarpal joints.. Carpal bones are normally aligned. No suspicious bony lesions or progression that would indicate definite erosive arthritis.. Soft tissues: No suspicious soft tissue calcifications. IMPRESSION: Moderately severe to severe degenerative osteoarthritic change without evidence of periarticular erosions in a pattern suggestive of definite gout. Dictated by: Pascual Granados M.D. on 11/15/2020 at 14:12 Approved by: Pascual Granados M.D. on 11/15/2020 at 14:14
[2020-11-15 14:32] LABS: Hemoglobin A1C% w Est Avg Glu 6.9 % (4.0-6.0)
== END ==
PROVIDERS: Family Provider Student in an Organized Health Care Education/Training Program; PCP Student in an Organized Health Care Education/Training Program; Referring Provider Family Medicine; Visit Provider Family Medicine
DX: M79.89 Other specified soft tissue disorders (principal); R73.9 Hyperglycemia, unspecified; M79.641 Pain in right hand
CPT/HCPCS: 36415; 73130; 83036

== ENCOUNTER → 2020-12-01 12:01 | Outpatient (CLI) | payer MEDICARE, OTHER, SELFPAY ==
[2020-12-01 16:02] LABS: Creatinine Urine Random 93.7 mg/dL
[2020-12-01 16:43] LABS: Microalbumi Creatinin Ratio Ur 4119.5 ug/mg CR (<30)
== END ==
PROVIDERS: Family Provider Student in an Organized Health Care Education/Training Program; PCP Student in an Organized Health Care Education/Training Program; Referring Provider Student in an Organized Health Care Education/Training Program; Visit Provider Student in an Organized Health Care Education/Training Program
DX: E11.9 Type 2 diabetes mellitus without complications (principal)
CPT/HCPCS: 82043; 82570